=== PATIENT | male | born 1965 | race Caucasian/White ===

== ENCOUNTER 2019-11-15 09:32 | Inpatient (IN) | payer OTHER ==
[~2019-11-15] VITALS: Ht 175.3 cm; Wt 93.4 kg
[2019-11-15 09:34] VITALS: BP 154/96
[2019-11-15 09:58] LABS: ABSOLUTE NEUTROPHILS 5.8 thou/uL (1.4-8.2); BASOPHILS 0.4 % (0.0-2.0); EOSINOPHILS 2.4 % (0.0-3.0); HEMATOCRIT 49.8 % (42.0-52.0); HEMOGLOBIN 16.9 gm/dL (14.0-18.0); LYMPHOCYTES 19.3 % (24.0-44.0); MCH 28.7 pg (26.0-34.0); MCHC 33.9 g/dL (28.0-37.0); MCV 84.6 fL (80.0-100.0); MONOCYTES 5.1 % (1.0-8.0); PLATELET COUNT 110 thou/uL (150-400); POLYS 72.8 % (36.0-66.0); RBC 5.88 mil/uL (4.50-6.00); RDW 12.8 % (10.5-14.5)
[2019-11-15 10:05] LABS: ANION GAP 8 mmol/L (7-16); BUN 13 mg/dL (7-18); CALCIUM 9.4 mg/dL (8.5-10.1); CHLORIDE 103 mmol/L (98-107); CO2 29 mmol/L (21-32); CREATININE 1.2 mg/dL (0.7-1.3); GLUCOSE 130 mg/dL (74-106); POTASSIUM 3.8 mmol/L (3.5-5.1); SODIUM 140 mmol/L (136-145)
[2019-11-15 10:10] LABS: PROTIME 10.4 Seconds (9.3-11.4)
[2019-11-15 10:14] LABS: TROPONIN-I <0.06 ng/mL (<0.06)
[2019-11-15 12:28] VITALS: BP 130/103
[2019-11-15 12:33] VITALS: BP 120/96
--- NOTE | 2019-11-15 13:08 | EKG ---
[facility] [place] [place] [address] ELECTROCARDIOGRAM REPORT Name: DANIEL MICHEL Room #: 208-P ADM IN M.R.#: [id number] Admission: 11/15/19 Attend Phys: Daniel Campos MD Discharge: Date of : 67 Report #: [id number] THIS REPORT FOR: cc: Jenifer Booker MD, Christine MD Couchonnal,Octavio Harrington MD ~ THIS REPORT FOR: //name// 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
[2019-11-15 13:13] VITALS: BP 131/92
[2019-11-15 15:44] VITALS: BP 121/77
--- NOTE | 2019-11-15 18:35 | NUR ---
ASSUMED CARE OF PT AT APPROX 1300 FROM ER D/T LEG PAIN AND R/O DVT. ADMISSION ORDERS AND INSTRUCTIONS COMLETE. PT A&OX4, C/O OF LEG PAIN 08/14. VSS, NO DISTRESS DURING SHIFT. WILL CONTINUE TO MONITOR AND FOLLOW POC.
[2019-11-15 19:55] VITALS: BP 116/76
[2019-11-16 00:06] VITALS: BP 117/79
[2019-11-16 05:19] VITALS: BP 117/72
--- NOTE | 2019-11-16 06:41 | NUR ---
ASSESSMENTS CHARTED, MEDS GIVEN CHARTED. STARTED ON HEPARIN DRIP DURING NIGHT. UP AT TATYANA IN ROOM. SADDLE EMBOLISM AND DVTS PER CTA. FALL PRECAUTIONS IN PLACE, DENIED PAIN DURING SHIFT.
[2019-11-16 07:26] LABS: HEMATOCRIT 46.3 % (42.0-52.0); HEMOGLOBIN 15.4 gm/dL (14.0-18.0); MCH 28.5 pg (26.0-34.0); MCHC 33.3 g/dL (28.0-37.0); MCV 85.4 fL (80.0-100.0); RBC 5.42 mil/uL (4.50-6.00); RDW 12.7 % (10.5-14.5)
[2019-11-16 07:49] LABS: ALBUMIN 3.4 g/dL (3.4-5.0); ANION GAP 6 mmol/L (7-16); BUN 11 mg/dL (7-18); CALCIUM 8.8 mg/dL (8.5-10.1); CHLORIDE 105 mmol/L (98-107); CO2 29 mmol/L (21-32); CREATININE 1.1 mg/dL (0.7-1.3); GLUCOSE 109 mg/dL (74-106); POTASSIUM 4.2 mmol/L (3.5-5.1); SGOT 25 U/L (15-37); SGPT 53 U/L (30-65); SODIUM 140 mmol/L (136-145); TOTAL BILIRUBIN 0.6 mg/dL (<0.1-1.0); TOTAL PROTEIN 6.8 g/dL (6.4-8.2); TROPONIN-I <0.06 ng/mL (<0.06)
[2019-11-16 08:13] LABS: CHOLESTEROL 197 mg/dL (<200); HDL CHOLESTEROL 36 mg/dL (>40); LDL CHOLESTEROL 146 mg/dL (<100); TC:HDL 5.5 Ratio (Not establshd); TRIGLYCERIDE 78 mg/dL (<150); VLDL 16 mg/dL (<40)
[2019-11-16 08:17] VITALS: BP 136/93
--- NOTE | 2019-11-16 11:50 | 2DMMODE ---
[facility] [place] [address] 2 D/M-MODE ECHOCARDIOGRAM Name: ANANDDANIEL Room #: 208-P ADM IN M.R.#: [id number] Admission: 11/15/19 Attend Phys: Daniel Campos MD Discharge: Date of : 67 Report #: [id number] THIS REPORT FOR: cc: Jenifer Booker MD,Giuseppe Parr MD, MD ~ APPROVED REPORT Study performed: 11/16/2019 10:38:38 EXAM: Comprehensive 2D, Doppler, and color-flow Echocardiogram Patient Location: Bedside Room #: 208 Status: routine BSA: 2.09 HR: 65 bpm BP: 136/93 mmHg Rhythm: NSR Other Information Study Quality: Adequate Indications Bilateral PE's 2D Dimensions RVDd: 36.94 mm IVSd: 10.23 (7-11mm) LVOT Diam: 20.71 (18-24mm) LVDd: 44.23 mm PWd: 11.21 (7-11mm) Ascending Ao: 29.18 (22-36mm) LVDs: 31.92 (25-40mm) Aortic Root: 32.05 mm IVC: 8.00 mm Volumes Left Atrial Volume (Systole) Single Plane 4CH: 24.27 mL Single Plane 2CH: 39.83 mL LA ESV Index: 17.00 mL/m2 Aortic Valve AoV Peak Ronak.: 1.06 m/s AO Peak Gr.: 4.48 mmHg LVOT Max P.97 mmHg LVOT Max V: 0.86 m/s [place] Vmax: 2.74 cm2 [facility] [address] [address] 2 D/M-MODE ECHOCARDIOGRAM Name: DANIEL MICHEL Room #: 208-P [facility] IN [place]ella#: [id number] Admission: 11/15/19 Attend Phys: Daniel Campos MD Discharge: Date of : 67 Report #: [id number] Mitral Valve E/A Ratio: 0.9 MV Decel. Time: 194.24 ms MV E Max Ronak.: 0.59 m/s MV A Ronak.: 0.66 m/s MV PHT: 56.33 ms IVRT: 107.27 ms Pulmonary Valve PV Peak Ronak.: 0.93 m/s PV Peak Gr.: 3.46 mmHg Pulmonary Vein P Vein S: 0.43 m/s P Vein A: 0.24 m/s P Vein D: 0.68 m/s P Vein A Dur.: 100.3 msec P Vein S/D Ratio: 0.63 Tricuspid Valve RAP Estimate: 5.00 mmHg Left Ventricle The left ventricle is normal size. There is normal left ventricular wall thickness. The left ventricular systolic function is normal. The left ventricular ejection fraction is within the normal range. LVEF is 55-60%. Mild diastolic dysfunction is present (impaired relaxation pattern). Right Ventricle The right ventricle is normal size. The right ventricular systolic function is normal. Atria The left atrium size is normal. The right atrium size is normal. Aortic Valve The aortic valve is normal in structure. No aortic regurgitation is present. There is no aortic valvular stenosis. Mitral Valve The mitral valve is normal in structure. There is no mitral valve regurgitation noted. No evidence of mitral valve stenosis. Tricuspid Valve The tricuspid valve is normal in structure. There is no tricuspid valve regurgitation noted. Unable to assess PA pressure. [facility] [place] [address] 2 D/M-MODE ECHOCARDIOGRAM Name: DANIEL MICHEL Room #: 208-P ADM IN M.R.#: [id number] Admission: 11/15/19 Attend Phys: Daniel Campos MD Discharge: Date of : 67 Report #: [id number] Pulmonic Valve The pulmonary valve is normal in structure. There is no pulmonic valvular regurgitation. Great Vessels The aortic root is normal in size. IVC is normal in size and collapses >50% with inspiration. Pericardium There is no pericardial effusion. <Conclusion> The left ventricle is normal size. There is normal left ventricular wall thickness. The left ventricular systolic function is normal. Mild diastolic dysfunction is present (impaired relaxation pattern). The right ventricle is normal size. The left atrium size is normal. The aortic valve is normal in structure. There is no mitral valve regurgitation noted. There is no tricuspid valve regurgitation noted. <ELECTRONICALLY SIGNED> By: Giuseppe De Anda MD 11/16/19 1148 [id number] [id number] Giuseppe De Anda MD /INF
--- NOTE | 2019-11-16 12:29 | NUR ---
ORDERS RECEIVED FOR PT EVAL AND TREAT. Pt HAS BEEN UP AD TATYANA IN ROOM. Pt LIVES WITH IN HOME WITH 8+7+6 STAIRS, SIDE TO SIDE SPLIT HOME. NO AD. 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 DRIVES. INDEP WITH ADLs. Pt COMPLETED SLR WITHOUT DIFFICULTY. Pt REPORTED NO NEED FOR PT SERVICES AT THIS TIME. ENCOURAGED WALKING DURING THE DAY FOR ACTIVITY AND TO PREVENT FURTHER CLOTS. Pt AGREEABLE. ACUTE PT TO SIGN OFF.
--- NOTE | 2019-11-16 16:02 | NUR ---
AAOX4. CALM, PLEASANT. NO C/O. NSR PER TELE. HEPARIN DRIP ORDERED. WILL CONTINUE TO FOLLOW CLOSELY.
[2019-11-16 17:45] VITALS: BP 115/83
[2019-11-16 20:14] VITALS: BP 129/76
[2019-11-17 00:01] VITALS: BP 104/63
[2019-11-17 00:07] LABS: GLYCOHEMOGLOBIN (HGB A1C) 5.9 % (4.8-5.6)
--- NOTE | 2019-11-17 04:47 | NUR ---
ASSUMED PT CARE AT 1900. PT IS ALERT AND ORIENTED. NO SIGN OF DISTRESS NOTED IN PT. PT IS STABLE. NO DIFFICULTY BREATHING. PT IS AMBULATORY. DENIES ANY PAIN. ASSESSMENT COMPLETED AND DOCUMENTED. CONTINOUNS HEPARIN DRIP. DENIES ANY FURTHER NEEDS AT THIS TIME. CONTINUE TO MONITOR PT.
[2019-11-17 05:13] VITALS: BP 105/69
[2019-11-17 08:40] VITALS: BP 145/91
[2019-11-17 11:44] VITALS: BP 130/89
[2019-11-17] MEDS ORDERED: TYLENOL EXTRA500 MG PO (12:46)
[2019-11-17] MEDS ORDERED: XARELTO15 MG PO (12:46)
[2019-11-17 13:00] VITALS: BP 130/89
--- NOTE | 2019-11-17 13:37 | NUR ---
ASSUMED CARE OF PT AT SHIFT CHANGE. ASSESSMENTS CHARTED. MEDS GIVEN PER OCT. PT A&OX4. VSS. NO C/O PAIN OR DISTRESS. HEPRARIN GTTS. DISCHARGE ORDERS AND INSTRUCTIONS COMLETE. TELE AND IV DC'D. PT WALKED WITH AID WAITING IN PERSONAL CAR AT [place]ST ENTRANCE.
[2019-11-17 14:28] VITALS: BP 130/89
== END 2019-11-17 13:37 | disposition home or self-care (01) | DRG 299 ==
LOC: ER 09:32 → EROBS 12:30 → 2N 12:30
PROVIDERS: Emergency Medicine Emergency Medical Services; ADMIT Internal Medicine
DX: I82.431 Acute embolism and thrombosis of right popliteal vein (principal); I26.92 Saddle embolus of pulmonary artery without acute cor pulmonale; D68.2 Hereditary deficiency of other clotting factors; I82.411 Acute embolism and thrombosis of right femoral vein; I82.441 Acute embolism and thrombosis of right tibial vein; I82.451 Acute embolism and thrombosis of right peroneal vein; I82.412 Acute embolism and thrombosis of left femoral vein; I82.432 Acute embolism and thrombosis of left popliteal vein; K21.9 Gastro-esophageal reflux disease without esophagitis; R73.9 Hyperglycemia, unspecified; E66.9 Obesity, unspecified; Z86.718 Personal history of other venous thrombosis and embolism; Z68.30 Body mass index [BMI] 30.0-30.9, adult; Z79.01 Long term (current) use of anticoagulants; Z79.899 Other long term (current) drug therapy
CPT/HCPCS: 10081; 10194